=== PATIENT | female | born 1990 | race Caucasian/White ===

== ENCOUNTER 2020-06-02 05:34 | Inpatient (IN) ==
--- NOTE | 2020-05-17 13:31 | PAT Medication Instructions ---
Medication Instructions Date of Service May 17, 2020 Home Medications calcium carbonate [Tums] 300 mg PO TID PRN no.144-folic acid [] 400 mcg PO PM DO NOT take the morning of surgery calcium carbonate [Tums] 300 mg PO TID PRN Take evening before surgery calcium carbonate [Tums] 300 mg PO TID PRN (if needed) no.144-folic acid [] 400 mcg PO PM OTHERWISE NOTHING TO EAT OR DRINK AFTER MIDNIGHT Other Notes If you have any questions please call us at [phone] or [phone] or [phone] or [phone]
--- NOTE | 2020-05-19 12:21 | Anesthesiology Consultation ---
Date of Service May 19, 2020 Assessment & Plan (1) Encounter for pre-operative examination: Chart Review Chart Review: Acceptable Risk for Surgery and Patient seen in Pre Admission Testing Per PAT appt 05/19/20, pt denies any recent travel. Educated patient to follow up with surgeon's office regarding Covid testing. Educated on importance of self quarantining, social distancing and wearing mask in public both for the patient and household contacts. Teaching & Discussion Pre-Anesthesia Teaching/Discussion Notes: Instructed NPO after midnight before surgery,except medications with 15 cc of water. Medication instructions provided according to the PAT guidelines. History Surgery Operation Date: 06/02/20 08:50 Proposed Procedures p Section in LD - Villa Carmona MD Height/Weight Height: 5 ft 3 in Weight: 65.4 kg Allergies Allergy/AdvReac Type Severity Reaction Status Date / Time tuberculin, purified protein Allergy Intermediate Rash Verified 05/16/20 09:48 deriva Medications Home Medications Medication Instructions Recorded Confirmed Last Taken calcium carbonate [Tums] 300 mg PO TID PRN 05/16/20 05/16/20 Unknown no.144-folic acid 400 mcg PO PM 05/16/20 05/16/20 Unknown [] Past Medical History Medical History Heartburn during Rhinitis related- chronic and stable Exercise / Class Metabolic Activity II 4-5 Yardwork/Stairs/Walk up hill (one flight of stairs- no chest pain- mild SOB; rides bike 3 days week ) Past Family History Family History Grandmother (Paternal) Diabetes Past Surgical History Surgical History History of adenoidectomy History of myringotomy History of surgery on right wrist for cyst History of tonsillectomy History of tooth extraction wisdom teeth Past Anesthesia History No Hx of Anesthesia Complications (with exception to tonsillectomy- groggy- no reintubatin or ICU stay ) and No Family Hx of Anesthesia Complications History of PONV No Hx of PONV and Hx of Motion Sickness (recently secondary to ) Social History Smoking Status: Never smoker Do You Dip or Chew Tobacco: No Hx Alcohol Use: No Hx Substance Use: No substance use type: does not use Review of Systems Patient denies chest pain, shortness of breath at rest , cough, wheezing, palpitations. No hx of seizures, stroke, [place]. No hx of blood clots or blood transfusions Physical Exam Vital Signs VITALS BP 110/70 P 80 TEMP 98.3 SP02 99% RESP 16 Constitutional no acute distress ENMT Mouth: no TMJ clicking Thyromental Distance: > or= 3.5 Finger Breadths (3.5) Mallampati Class: II Neck neck extension not limited Respiratory normal respiratory effort; no respiratory distress Auscultation: lungs clear to auscultation bilaterally; no wheezes Cardiovascular Rate/Rhythm: regular rate and regular rhythm Heart Sounds: no murmur Musculoskeletal Spine: no pain with cervical ROM Neurologic moves all extremities Psychiatric Orientation: alert Testing Laboratory Results 05/19/20 12:40 05/19/20 12:40 PT 10.3 Seconds (9.0-12.0) 05/19/20 12:40 INR 1.0 (0.9-1.1) 05/19/20 12:40 APTT 24.8 Seconds (21.0-31.0) 05/19/20 12:40 Blood Type B Positive 05/19/20 12:40 Antibody Screen NEGATIVE 05/19/20 12:40
[2020-05-19 13:31] LABS: Basophils # (auto) 0.02 K/uL (0-0.2); Basophils % (auto) 0.2 %; Eosinophils # (auto) 0.07 K/uL (0-0.5); Eosinophils % (auto) 0.8 %; Hematocrit (blood only) 35.7 % (37-47); Hemoglobin 11.9 g/dL (12.0-16.0); Immature Granulocytes # (auto) 0.15 K/uL (0.00-0.02); Immature Granulocytes % (auto) 1.8 %; Lymphocytes # (auto) 1.78 K/uL (1.2-3.4); Lymphocytes % (auto) 21.3 %; Mean Corpuscular Hemoglobin 32.5 pg (25-34); Mean Corpuscular Hgb Conc 33.3 g/dL (32-36); Mean Corpuscular Volume 97.5 fL (80-100); Mean Platelet Volume 10.8 fL (7.4-10.4); Monocytes # (auto) 0.59 K/uL (0.11-0.59); Monocytes % (auto) 7.1 %; Neutrophils # (auto) 5.75 K/uL (1.4-6.5); Neutrophils % (auto) 68.8 %; Platelet Count 179 K/uL (130-400); RDW Standard Deviation 49.9 fL (36.4-46.3); Red Blood Count 3.66 M/uL (4.2-5.4); White Blood Count 8.36 K/uL (4.8-10.8)
[2020-05-19 13:50] LABS: Partial Thromboplastin Ratio 0.9; Partial Thromboplastin Time 24.8 Seconds (21.0-31.0); Prothrombin Time 10.3 Seconds (9.0-12.0)
[2020-05-19 14:19] LABS: BUN Creatinine Ratio 13.5 (10-20); Calcium 8.2 mg/dl (8.5-10.1); Est GFR (African American) 143.2; Est GFR (Non-African American) 123.5; Potassium 3.8 mmol/L (3.5-5.1)
--- NOTE | 2020-05-27 11:47 | History and Physical Report ---
DATE OF ADMISSION: 06/02/2020 CHIEF COMPLAINT: Total placenta previa, intrauterine , 37 weeks gestation. HISTORY OF PRESENT ILLNESS: The patient is a 2, para 0. She has had 1 spontaneous AB. She was diagnosed with suspected placenta previa at 19 weeks at her first ultrasound for anatomy. She was then seen at [facility] at 24 weeks where the diagnosis was confirmed with a transvaginal probe. Since that time, she has had no bleeding. She has had no pelvic exams or intercourse. She received 2 sets of steroids, one at about 26 weeks gestation and one on 05/12/2020. Her anatomical gestational age with ultrasound and her LMP ultrasound dates match up exactly. She is presently being scheduled for primary low segment section at 37 weeks due to total placenta previa. PAST MEDICAL HISTORY: ALLERGIES: SHE IS ALLERGIC TO TB TEST. SURGERIES: She has had T and A. She had tubes in her ears. She had a ganglion cyst removed from her right wrist. MEDICAL HISTORY: No history of rheumatic fever, heart disease, heart murmur, diabetes, tuberculosis. SOCIAL HISTORY: No smoking, no alcohol intake. Works at home. FAMILY HISTORY: Mom at age 36 in an accident. Father is 63 in good health. Two brothers and 1 sister in good health. REVIEW OF SYSTEMS: HEAD: No symptoms of frequent or severe headaches. EYES: No symptoms of blurred vision, double vision. EARS: No symptoms of frequent ear infection, difficulty hearing. NOSE: No symptoms of frequent nosebleeds, difficulty breathing through her nose. THROAT: No symptoms of frequent or severe sore throat, difficulty swallowing. RESPIRATORY SYSTEM: No history of asthma, chest pain, shortness of breath. PHYSICAL EXAMINATION: GENERAL: Well-developed, well-nourished white female, alert, oriented x3 and cooperative, no acute distress, appeared her stated age. EYES: Conjunctivae are pink. Sclerae white. No evidence of jaundice. EARS: Had normal light reflex bilaterally. NOSE: Had normal mucosa. Septum is midline. There were no polyps. THROAT: No erythema or evidence of infection. MOUTH: Teeth are in good state of repair. HEAD: Normocephalic, normal distribution of hair. HEART: Had regular rhythm. S1, S2 are normal. LUNGS: Clear to auscultation and percussion. ABDOMEN: Term size gravid uterus. Estimated weight 7 pounds. BACK: No CVA tenderness. MUSCULOSKELETAL: No calf tenderness. PELVIC: Deferred due to total placenta previa. IMPRESSIONS OF THIS CASE: Status post T and A, status post bilateral tubes in her ears, history of a ganglion cyst removal of her right wrist, intrauterine , 37 weeks gestation, total placenta previa.
[~2020-06-02 05:34] MED LIST: SODIUM CHLORIDE 0.9% 250 ML IV PRN
[2020-06-02] MEDS ORDERED: CITRIC ACID/SODIUM CITRATE 15 ML UDC PO SCH (06:00)
[2020-06-02] MEDS ORDERED: LACTATED RINGER'S 1,000 ML IV SCH ×2 (06:00→09:00)
[2020-06-02] MEDS ORDERED: cefOXitin 2,000 MG in DEXTROSE 5% 50 ML IV SCH (06:00)
[2020-06-02 06:29] LABS: Basophils # (auto) 0.02 K/uL (0-0.2); Basophils % (auto) 0.3 %; Eosinophils # (auto) 0.05 K/uL (0-0.5); Eosinophils % (auto) 0.6 %; Hematocrit (blood only) 34.2 % (37-47); Hemoglobin 11.3 g/dL (12.0-16.0); Immature Granulocytes # (auto) 0.07 K/uL (0.00-0.02); Immature Granulocytes % (auto) 0.9 %; Lymphocytes % (auto) 20.2 %; Mean Corpuscular Hemoglobin 32.6 pg (25-34); Mean Corpuscular Volume 98.6 fL (80-100); Monocytes # (auto) 0.65 K/uL (0.11-0.59); Monocytes % (auto) 8.2 %; Neutrophils # (auto) 5.55 K/uL (1.4-6.5); Neutrophils % (auto) 69.8 %; Platelet Count 141 K/uL (130-400); RDW Coefficient of Variation 14.2 % (11.5-14.5); RDW Standard Deviation 50.3 fL (36.4-46.3); Red Blood Count 3.47 M/uL (4.2-5.4); White Blood Count 7.94 K/uL (4.8-10.8)
[2020-06-02 06:41] LABS: Partial Thromboplastin Ratio 0.9; Partial Thromboplastin Time 25.1 Seconds (21.0-31.0)
[2020-06-02 06:46] LABS: BUN Creatinine Ratio 17.2 (10-20); Calcium 9.2 mg/dl (8.5-10.1); Creatinine Clr Calc Pharmacy 129.7 ml/min; Est GFR (African American) 142.4; Est GFR (Non-African American) 122.8; Potassium 3.6 mmol/L (3.5-5.1)
[2020-06-02] MEDS ORDERED: MoRPHine SULFATE PF 1 MG/ML 10 ML AMP/VIAL ONE (06:47)
[2020-06-02] MEDS ORDERED: BUPIVACAINE 0.5 % 5 MG/1 ML PF 10ML VIAL ONE (06:56)
[2020-06-02] MEDS ORDERED: OXYTOCIN 10 UNITS/ML VIAL ONE ×4 (06:58→08:14)
[2020-06-02] MEDS ORDERED: fentaNYL citrate 100 MCG/2 ML VIAL ONE (07:01)
[2020-06-02] MEDS ORDERED: ALBUMIN HUMAN 5% 12.5 GM/250 ML VIAL IV ONE (07:04)
--- NOTE | 2020-06-02 07:04 | History & Physical Bridge Note ---
Date of Service June 02, 2020 History & Physical Bridge Note I have examined the patient, reviewed the History & Physical and in the interval since the performance of the History & Physical I have noted the following changes of clinical significance: no changes noted
[2020-06-02] MEDS ORDERED: SODIUM CHLORIDE 0.9% 250 ML IV PRN (07:34)
[2020-06-02] MEDS ORDERED: NALOXONE HCL 0.4 MG/1 ML VIAL/CARP IV PRN (08:01)
[2020-06-02] MEDS ORDERED: DiphenhydrAMINE HCL 50 MG/ML VIAL IV PRN (08:01)
[2020-06-02] MEDS ORDERED: ONDANSETRON INJ 2 MG/ML 2 ML VIAL IV PRN (08:01)
[2020-06-02] MEDS ORDERED: NALOXONE HCL 1 MG in SODIUM CHLORIDE 0.9% 1000ML 1,000 ML IV PRN (08:01)
[2020-06-02] MEDS ORDERED: MoRPHine SULFATE 2 MG/ML CARP IV PRN (08:01)
[2020-06-02] MEDS ORDERED: LACTATED RINGER'S 500 ML IV PRN (08:01)
[2020-06-02] MEDS ORDERED: ePHEDrine sulfate 50 MG/ML AMP IV PRN (08:01)
[2020-06-02] MEDS ORDERED: NALOXONE HCL 0.08 MG in SYRINGE 1.8 ML IV PRN (08:01)
[2020-06-02] MEDS ORDERED: MoRPHine SULFATE PF 1 MG/ML 10 ML AMP/VIAL INT SPINAL ONE (08:01)
[2020-06-02] MEDS ORDERED: ONDANSETRON INJ 2 MG/ML 2 ML VIAL ONE (08:11)
[2020-06-02] MEDS ORDERED: PHENYLEPHRINE HCL 10 MG/ML VIAL ONE (08:11)
[2020-06-02] MEDS ORDERED: DC INTRASPINAL MORPHINE SCH (08:15)
[2020-06-02] MEDS ORDERED: SODIUM CHLORIDE 0.9% 1000ML 1,000 ML IV SCH (08:15)
[2020-06-02] MEDS ORDERED: NO NARCOTICS OR SEDATIVES SCH (08:15)
[2020-06-02] MEDS ORDERED: OXYTOCIN 10 UNITS/ML VIAL IM ONE (08:21)
[2020-06-02] MEDS ORDERED: SENNA 8.6 MG TAB PO PRN (08:53)
[2020-06-02] MEDS ORDERED: BENZOCAINE 20% AER SPR 82.5 GM CAN EXT PRN (08:53)
[2020-06-02] MEDS ORDERED: DIPHTHERIA/TETANUS/PERTUSSIS 0.5 ML SYR/VIAL IM ONE (08:53)
[2020-06-02] MEDS ORDERED: SUPERCREAM 0.870% 15 GM JAR EXT PRN (08:53)
[2020-06-02] MEDS ORDERED: HYDROCORTISONE ACETATE 25 MG SUPP PR PRN (08:53)
[2020-06-02] MEDS ORDERED: MAGNESIUM HYDROXIDE SUSP 30 ML UDC PO PRN (08:53)
--- NOTE | 2020-06-02 08:53 | Post Operative Brief Note ---
Immediate Post Op Note v1 Date of Surgery June 02, 2020 Pre & Post Diagnosis Operation Date: 06/02/20 07:15 Pre-Op Diagnosis: 37 Weeks, Complete Placenta Previa Post-Op Diagnosis: 37 Weeks, Complete Placenta Previa I identified the patient and participated in the time-out.: Yes Procedure Operation Date: 06/02/20 07:15 Actual Procedures p Section in Operating Room - Villa Carmona MD Surgeon Villa Carmona MD Powdered Sugar Supervisor Dr Mota Estimated Blood Loss 800 Findings Consistent with Post-Op Diagnosis placenta previa confirmed Specimens placenta Drains Sinclair Catheter (16fr sinclair catheter placed without difficulty, sinclair demonstrates clear yellow urine. Output measured and recorded by anesthesia.) Anesthesia Type MAC Spinal Regional Complications none Disposition Accompanied Patient To Recovery: No Disposition: Recovery Room
[2020-06-02] MEDS: KETOROLAC 30 MG/ML VIAL IV PRN ×3 (09:41→23:33)
--- NOTE | 2020-06-02 10:02 | Operative Report (OR) ---
DATE OF OPERATION: 06/02/2020 PROCEDURE: Primary low segment section. INDICATIONS FOR SURGERY: Total placenta previa, intrauterine , 37 weeks gestation. PREOPERATIVE DIAGNOSES: Total placenta previa, intrauterine , 37 weeks. POSTOPERATIVE DIAGNOSES: Total placenta previa, intrauterine , 37 weeks. Previa confirmed, delivered live male . SURGEON: Nate Carmona MD. [employer] TECHNICAL MANAGER: Dr. Mota. ESTIMATED BLOOD LOSS: 800 mL. ANESTHESIA: Spinal. OPERATIVE FINDINGS AND PROCEDURE: The patient was brought to the OR table, correctly identified by armband and conversation. Spinal anesthesia was administered. Martínez catheter was inserted aseptically in the bladder. Compression stockings were applied. Lower abdomen was painted with an alcohol based sterilizing solution, draped in the usual sterile fashion. The adequacy of the spinal was tested and found to be good. A Pfannenstiel incision was made, carried down to the anterior fascia by sharp dissection. Hemostasis was secured by electrocauterization. Fascia was incised transversely from the underlying muscle by blunt and sharp dissection. Recti muscles were in the midline, exposing peritoneum, which was carefully raised and entered. A retractor was then placed into the incision and opened up to its maximum capacity. We palpated the head. The head was not low. We made an incision above the vesicouterine fold about the middle of where the head was palpated to be. Then I scored the lower uterine segment with a knife and then entered with the scissors. Immediately some of the placenta came through. I basically got in the plane around the placenta, was able to get under the head, applied a vectis retractor. With fundal pressure, the infant was delivered. Cord was clamped and cut. The was attended to by the motor builder winder who was scrubbed and present at the time of delivery. Cord blood was taken. Now, the placenta was removed in total. Uterus, tubes, and ovaries were brought out through the incision. Uterine cavity was cleansed with a clean sponge. Ten units of Pitocin were injected into the myometrium. Myometrium was approximated in 2 layers, approximated the muscular layer with a running heavy chromic and then I approximated the fascial layer over this with a heavy Vicryl with wide bites in good approximation of the fascial layer. Following this, I did one interrupted [id number] on the patient's left side because of some bleeding. This controlled the bleeding. I then used a 3-0 chromic to reapproximate the peritoneal edges restoring the integrity of the vesicouterine fold. We then cleansed the pelvis of all blood clots and debris. We put the uterus, tubes, and ovaries back into the abdominal cavity, removed the retractor and I did a careful anatomical approximation of the anterior abdominal wall. Peritoneum was closed with a mattress suture of chromic catgut. Recti muscles were approximated with interrupted [id number] suture of chromic catgut. The fascia was closed with continuous interlocking suture of Vicryl on each side, tied in the middle. SubQ was approximated with a running plain. Skin edges were approximated with staple clips. The patient tolerated the procedure well and left the OR in good condition. Estimated blood loss was 800 mL. I attest to the content of the Intraoperative Record and any orders documented therein. Any exception s are noted below.
[2020-06-02] MEDS: OXYTOCIN 20 UNITS in LACTATED RINGER'S 1,000 ML IV SCH ×2 (11:18→19:12)
[2020-06-02] MEDS: SIMETHICONE 80 MG CHEW PO SCH ×3 (13:00→21:00)
--- NOTE | 2020-06-02 13:15 | Anesthesiology Progress Note ---
Date of Service June 02, 2020 Anesthesia Post Procedure Vital Signs Vital Signs: Temp Pulse Pulse Resp BP BP Pulse Ox 06/02/20 11:28 49 L 102/64 100 06/02/20 11:23 60 100 06/02/20 11:18 60 102/62 100 06/02/20 11:13 60 100 06/02/20 11:08 36.4 C L 69 71 20 121/73 121/73 100 06/02/20 11:03 67 98 06/02/20 10:58 62 104/71 100 06/02/20 10:53 66 100 06/02/20 10:48 69 100/69 100 06/02/20 10:43 60 100 06/02/20 10:38 78 80 20 98/69 L 98/69 L 100 06/02/20 10:33 63 100 06/02/20 10:28 65 96/69 L 99 06/02/20 10:23 80 99 06/02/20 10:18 62 96/64 L 100 06/02/20 10:13 62 100 06/02/20 10:10 36.4 C L 61 20 96/60 L 100 06/02/20 10:08 36.4 C L 61 61 20 96/60 L 96/60 L 100 06/02/20 10:03 59 L 99 06/02/20 09:58 61 61 16 98/62 L 98/62 L 100 06/02/20 09:53 61 100 06/02/20 09:48 60 61 20 99/64 L 99/64 L 100 06/02/20 09:43 61 99 06/02/20 09:38 63 60 16 99/60 L 99/60 L 100 06/02/20 09:33 62 99 06/02/20 09:28 60 59 L 16 95/55 L 95/55 L 100 06/02/20 09:23 61 100 06/02/20 09:18 62 98/59 L 100 06/02/20 09:17 67 20 98/59 L 100 06/02/20 09:15 69 92 06/02/20 09:13 72 98 06/02/20 09:08 36.4 C L 61 61 20 91/53 L 91/53 L 93 06/02/20 09:07 61 92 06/02/20 09:03 62 100 06/02/20 08:58 59 L 109/59 L 100 06/02/20 07:18 36.7 C 20 06/02/20 07:07 71 116/67 06/02/20 06:03 36.8 C 06/02/20 05:44 36.8 C 76 18 112/75 Pain Intensity Abdomen: Pain Intensity: 0 Transfer of Care Handoff Completed per policy Notes Mental Status: alert / awake / arousable and participated in evaluation Patient Amnestic to Procedure: Yes Nausea / Vomiting: adequately controlled Pain: adequately controlled Airway Patency, RR, SpO2: stable & adequate BP & HR: stable & adequate Hydration State: stable & adequate Neuraxial Anesthesia: was administered and sensory block is resolving Anesthetic Complications: no major complications apparent and Pt Satisfied with anesthetic care
[2020-06-02] MEDS: DOCUSATE SODIUM 100 MG CAP PO SCH (21:00)
[2020-06-03] MEDS ORDERED: MEPERIDINE HCL 50 MG/ML CARP IV PRN (02:03)
[2020-06-03] MEDS ORDERED: KETOROLAC 30 MG/ML VIAL IV PRN (02:03)
[2020-06-03] MEDS ORDERED: PROMETHAZINE HCL 25 MG in SODIUM CHLORIDE 0.9% 50 ML IV PRN (02:03)
[2020-06-03] MEDS ORDERED: DiphenhydrAMINE HCL 50 MG/ML VIAL IV PRN (02:03)
[2020-06-03] MEDS ORDERED: ONDANSETRON INJ 2 MG/ML 2 ML VIAL IV PRN (02:03)
[2020-06-03] MEDS ORDERED: ZOLPIDEM TARTRATE 5 MG TAB PO PRN (02:03)
[2020-06-03] MEDS: OXYCODONE/ACETAMINOPHEN 5mg/325mg TAB PO PRN ×6 (03:20→23:56)
[2020-06-03 06:44] LABS: Basophils # (auto) 0.02 K/uL (0-0.2); Basophils % (auto) 0.2 %; Eosinophils # (auto) 0.03 K/uL (0-0.5); Eosinophils % (auto) 0.3 %; Hematocrit (blood only) 28.7 % (37-47); Hemoglobin 9.6 g/dL (12.0-16.0); Immature Granulocytes # (auto) 0.07 K/uL (0.00-0.02); Immature Granulocytes % (auto) 0.6 %; Lymphocytes # (auto) 1.91 K/uL (1.2-3.4); Lymphocytes % (auto) 16.9 %; Mean Corpuscular Hemoglobin 33.1 pg (25-34); Mean Corpuscular Hgb Conc 33.4 g/dL (32-36); Mean Platelet Volume 11.1 fL (7.4-10.4); Monocytes # (auto) 0.69 K/uL (0.11-0.59); Monocytes % (auto) 6.1 %; Neutrophils # (auto) 8.59 K/uL (1.4-6.5); Neutrophils % (auto) 75.9 %; Platelet Count 140 K/uL (130-400); RDW Coefficient of Variation 14.3 % (11.5-14.5); White Blood Count 11.31 K/uL (4.8-10.8)
[2020-06-03] MEDS: PRENATAL VITAMIN 1 TAB PO SCH (07:28)
[2020-06-03] MEDS: FERROUS SULFATE 325 MG TAB PO SCH (07:28)
[2020-06-03] MEDS: DOCUSATE SODIUM 100 MG CAP PO SCH ×2 (07:28→20:37)
[2020-06-03] MEDS: SIMETHICONE 80 MG CHEW PO SCH ×4 (07:29→20:37)
[2020-06-03] MEDS: IBUPROFEN 600 MG TAB PO PRN ×5 (07:29→23:55)
--- NOTE | 2020-06-03 08:21 | Obstetrical Progress Note ---
Date of Service June 03, 2020 Assessment & Plan Admission and Anticipated Discharge Date Admission Date: June 02, 2020 Physical Exam Physical Exam: abdomen soft and non tender incision is clean and dry passing flatus no calf tenderness ambulating well vaginal bleeding scant hgb 9.6 Results & Data ([facility]) Vital Signs (Past 12 Hours) Vital Signs Temp Pulse Resp BP Pulse Ox 06/03/20 04:00 36.9 C 70 18 107/60 99 06/03/20 02:00 18 99 06/03/20 01:00 18 99 06/02/20 23:30 37.1 C 68 18 105/66 100 06/02/20 22:35 20 98 06/02/20 21:35 20 98 06/02/20 20:35 20 98
[2020-06-03] MEDS ORDERED: bisacodyL 5 MG TABEC PO SCH (20:00)
[2020-06-04] MEDS: OXYCODONE/ACETAMINOPHEN 5mg/325mg TAB PO PRN ×3 (04:03→12:39)
[2020-06-04] MEDS: IBUPROFEN 600 MG TAB PO PRN ×5 (04:03→21:37)
[2020-06-04 06:02] LABS: Hematocrit (blood only) 28.2 % (37-47); Hemoglobin 9.4 g/dL (12.0-16.0)
[2020-06-04] MEDS: SIMETHICONE 80 MG CHEW PO SCH ×4 (08:29→20:58)
[2020-06-04] MEDS: DOCUSATE SODIUM 100 MG CAP PO SCH ×2 (08:29→20:58)
[2020-06-04] MEDS: PRENATAL VITAMIN 1 TAB PO SCH (08:29)
[2020-06-04] MEDS: FERROUS SULFATE 325 MG TAB PO SCH (08:31)
[2020-06-04] MEDS ORDERED: bisacodyL 10 MG SUPP PR PRN (08:53)
[2020-06-04] MEDS ORDERED: ONDANSETRON 4 MG OD TAB PO PRN (09:15)
--- NOTE | 2020-06-04 12:38 | Obstetrical Progress Note ---
Date of Service June 04, 2020 Assessment & Plan Admission and Anticipated Discharge Date Admission Date: June 02, 2020 Physical Exam Physical Exam: abdomen soft and non tender incision is clean and dry passing flatus no calf tenderness vaginal bleeding scant hgb 9.4 Results & Data ([facility]) Vital Signs (Past 12 Hours) Vital Signs Temp Pulse Resp BP Pulse Ox 06/04/20 12:05 37.0 C 75 18 112/79 98 06/04/20 07:30 37.1 C 67 18 107/62
[2020-06-05] MEDS: IBUPROFEN 600 MG TAB PO PRN ×2 (03:28→07:29)
[2020-06-05] MEDS: FERROUS SULFATE 325 MG TAB PO SCH (07:28)
[2020-06-05] MEDS: DOCUSATE SODIUM 100 MG CAP PO SCH (07:28)
[2020-06-05] MEDS: SIMETHICONE 80 MG CHEW PO SCH (07:28)
[2020-06-05] MEDS: PRENATAL VITAMIN 1 TAB PO SCH (07:28)
--- NOTE | 2020-06-05 11:16 | Obstetrical Progress Note ---
Date of Service June 05, 2020 Assessment & Plan Admission and Anticipated Discharge Date Admission Date: June 02, 2020 Physical Exam Physical Exam: abdomen soft and non tender incision is clean and dry no calf tenderness ambulating well vagina bleeding scant hgb 9.4 Results & Data ([facility]) Vital Signs (Past 12 Hours) Vital Signs Temp Pulse Resp BP 06/05/20 08:14 37.1 C 80 16 111/73 06/05/20 00:10 36.9 C 63 18 108/72
--- NOTE | 2020-06-05 21:30 | Discharge Summary (DS) ---
She is a 2, para 1. Blood type is B positive. She was diagnosed earlier in her with a complete placenta previa. This was confirmed with a transvaginal ultrasound. She took the usual previa precautions during her course. The fetus was checked for fluid and growth several times and she received 2 sets of steroids, one at about 26 weeks gestation and one at about 34 weeks gestation. She was brought in exactly at 37 weeks and underwent primary low segment section. At the time of surgery, she had a little bit more than usual blood loss at about 800 mL. Previa was confirmed. At the time of surgery, her preoperative hemoglobin was 11.3. Postoperatively, it fell to 9.4. Postoperatively, she did well. Postoperative bleeding was good. She remained afebrile. She ambulated within 24 hours. At the time of discharge, she was ambulating well, eating well, taking a regular diet. Pain was well controlled with a combination of Percocet and Motrin and she was ready to be discharged. She was told to call the office if she had a temp over 100 or any heavy bleeding and to get the clips removed in about 1 week.
== END 2020-06-05 13:00 | disposition home or self-care (01) | DRG 788 ==
LOC: 4S1 05:34 → EDSTATUS 08:50 → 4S2 13:23

== ENCOUNTER 2023-08-20 15:55 | Observation (INO) ==
--- NOTE | 2023-08-20 16:38 | History & Physical Report ---
Date of Service August 20, 2023 Assessment & Plan (1) premature rupture of membranes (PPROM) with unknown onset of labor: Plan: 16 weeks patient had an abnormal panorama test and was sent to [place] to get confirmation rupture of membranes several hours afterwards. Clinical exam today sterile speculum was used there is pooling in the vagina well ferning and nitrazine are negative the AmniSure is definitively positive Ultrasound is performed baby is active heart rate tones positive there seems to be adequate fluid with the deepest vertical pocket of 6 cm I spoke with Dr. Jayden ALVES at [place] who was at her amnio today discussed the plan we discussed that generally the recommendation is observation at this stage we debated the benefit of antibiotics we discussed that there is limited data but it would be reasonable to consider ampicillin and azithromycin as the typical protocol for P PROM We discussed that outcomes generally are better with iatrogenic P PROM related to amniocentesis however there is a chance she will continue to leak. Discussed all of this with the patient and she would like to try antibiotics even with limited data we discussed risks of antibiotics we will keep her at least overnight and discuss further in the morning generally antibiotic protocols for viable fetuses are 48 hours of IV and then a switch to oral antibiotics but this will be discussed as the patient progresses and discussed with the on-call provider tomorrow Long review with the patient and her partner plan observation with antibiotics as mentioned and close clinical monitoring History of Present Illness Primary Care Provider: Keerthi Potter PA-C Patient presented to our labor and delivery after having an amniocentesis at [facility] earlier today and it was done at 10:45 in the morning patient states there were several passes of the needle to obtain fluid. On her drive home at approximately 3:30 PM she noticed a gush of fluid and continued leaking she is having some cramping but nothing significant she notices no blood Allergies Allergy/AdvReac Type Severity Reaction Status Date / Time tuberculin, purified protein Allergy Intermediate Rash Verified 07/29/23 09:29 deriva Home Medications Medication Instructions Recorded Confirmed Type omega-3 fatty acids [Fish Oil] PO 04/29/23 07/29/23 History no.167-folic acid-dha PO 04/29/23 07/29/23 History [One-A-Day ] levothyroxine 25 mcg tablet 25 mcg PO DAILY 06/25/23 07/29/23 History (Synthroid) Patient History Medical History (Updated 08/20/23 @ 16:35 by Ana Vance MD, FACOG) Miscarriage Rhinitis related- chronic and stable Heartburn during Surgical History (Updated 11/05/22 @ 08:36 by JANKI Carranza) H/O section History of surgery on right wrist for cyst History of tooth extraction wisdom teeth History of myringotomy History of adenoidectomy History of tonsillectomy Family History (Updated 11/12/22 @ 13:32 by JANKI Carranza) Grandmother (Paternal) Diabetes Grandfather (Paternal) Colorectal cancer Denies family history of Ovarian cancer Breast cancer Social History (Updated 06/25/23 @ 10:52 by Kirstin Baldwin) Smoking Status: Never smoker Second Hand Exposure: No; Do You Dip or Chew Tobacco: No; Hx Alcohol Use: No Hx Substance Use: No Preferred Language: Chadian Communication Ability: Effective Concrete Swimming Pool Installer Required: No Beliefs That Will Affect Care: None marital status: marital status details: Clay (34) [phone] Current Living Situation: Spouse Current Living Situation Comment: lives spouse, son, 1 dog current occupational status: employed current occupation: RN participant administrator Feels Safe at Home: Yes Assistive Devices: Glasses Physical Exam Constitutional: WD/WN, vitals as above well developed and well nourished Respiratory: normal respiratory effort, lungs clear to auscultation normal respiratory effort Cardiovascular: RRR, no murmur, no edema Gastrointestinal (Abdomen): normal bowel sounds, soft, nontender, no hepatosplenomegaly Coding Level of Care Code 06941 INT INP/OBS CARE 2/55MIN Diagnoses premature rupture of membranes (PPROM) with unknown onset of labor O42.919
[2023-08-20] MEDS ORDERED: AMPICILLIN SOD 1 GM VIAL IV SCH (16:45)
[2023-08-20] MEDS ORDERED: Patient's HEIGHT &/or WEIGHT Needed SCH (16:45)
[2023-08-20] MEDS ORDERED: AZITHROMYCIN 1,000 MG in DEXTROSE 5% 500 ML IV STA (16:46)
[2023-08-20] MEDS ORDERED: AMPICILLIN 2,000 MG in SODIUM CHLOR 0.9% MINI-B 100 ML IV SCH (17:00)
[2023-08-20] MEDS: LACTATED RINGER'S 1,000 ML IV PRN (17:03)
[2023-08-20] MEDS: AMPICILLIN 2,000 MG in SODIUM CHLOR 0.9% MINI-B 100 ML IV SCH ×2 (17:07→22:40)
[2023-08-20 17:19] LABS: Basophils # (auto) 0.03 K/uL (0.00-0.20); Basophils % (auto) 0.3 %; Eosinophils # (auto) 0.03 K/uL (0.00-0.50); Eosinophils % (auto) 0.3 %; Hematocrit (blood only) 37.2 % (37.0-47.0); Hemoglobin 13.2 g/dl (12.0-16.0); Immature Granulocytes # (auto) 0.03 K/uL (0.01-0.20); Immature Granulocytes % (auto) 0.3 %; Lymphocytes # (auto) 1.48 K/uL (1.20-3.40); Mean Corpuscular Hemoglobin 31.5 pg (25.0-34.0); Mean Corpuscular Hgb Conc 35.5 g/dL (32.0-36.0); Mean Corpuscular Volume 88.8 fL (80.0-100.0); Mean Platelet Volume 10.9 fL (9.4-12.4); Monocytes # (auto) 0.53 K/uL (0.11-0.59); Monocytes % (auto) 5.4 %; Neutrophils # (auto) 7.79 K/uL (1.40-6.50); Neutrophils % (auto) 78.7 %; Platelet Count 212 K/uL (130-400); RDW Coefficient of Variation 13.2 % (11.5-14.5); RDW Standard Deviation 43.1 fL (36.4-46.3); Red Blood Count 4.19 M/uL (4.20-5.40); White Blood Count 9.89 K/ul (4.8-10.8)
[2023-08-21] MEDS: AMPICILLIN 2,000 MG in SODIUM CHLOR 0.9% MINI-B 100 ML IV SCH ×4 (04:56→23:11)
[2023-08-21] MEDS: LACTATED RINGER'S 1,000 ML IV PRN ×3 (04:57→20:57)
--- NOTE | 2023-08-21 07:40 | Obstetrical Progress Note ---
Date of Service August 21, 2023 Assessment & Plan (1) premature rupture of membranes (PPROM) with unknown onset of labor: Plan: Performed bedside ultrasound today there is adequate fluid around the baby baby is active heart rate action is present patient does note she is still leaking although a lot less and she also feels significantly less crampy. We reviewed our plan today she is currently on IV antibiotics we have discussed this is an option yesterday and both the patient and I had agreed this was reasonable course of action typically we run IV antibiotics for 48 hours patient understands this will be 1 more night in hospital. We will continue the IV ampicillin for 48 hours would consider conversion to oral therapy and possible discharge home after that. The patient is noted signs of infection no elevation in temperature With regards to her current situation she says she did get to talk to her son by phone last night she is feeling somewhat better about the situation And ultimately this is a worrisome situation however P PROM with amniocentesis has a higher chance of sealing over and this is what we are hoping for we will monitor closely Admission and Anticipated Discharge Date Admission Date: August 20, 2023 Results & Data Vital Signs (Past 12 Hours) Vital Signs Temp Pulse Resp BP 08/21/23 05:00 98.6 F 18 08/21/23 02:45 97.7 F 16 08/21/23 02:45 67 106/51 L 08/20/23 22:44 98.4 F 18 08/20/23 22:44 68 95/51 L 08/20/23 21:00 98.4 F 18 PG Care Time/CCT Total # of Minutes Spent Total Time Spent with Patient: Total time spent is greater than 50% in coordination of care (as documented) at patient's floor/unit and/or counseling patient: Coding Level of Care Code 68801 SUB INP/OBS CARE 2/35MIN Diagnoses premature rupture of membranes (PPROM) with unknown onset of labor O42.919
[2023-08-21 08:16] LABS: Hematocrit (blood only) 33.8 % (37.0-47.0); Hemoglobin 11.9 g/dl (12.0-16.0); Mean Corpuscular Hemoglobin 31.6 pg (25.0-34.0); Mean Corpuscular Hgb Conc 35.2 g/dL (32.0-36.0); Mean Corpuscular Volume 89.9 fL (80.0-100.0); Mean Platelet Volume 10.7 fL (9.4-12.4); Platelet Count 180 K/uL (130-400); RDW Coefficient of Variation 13.4 % (11.5-14.5); RDW Standard Deviation 43.8 fL (36.4-46.3); Red Blood Count 3.76 M/uL (4.20-5.40); White Blood Count 7.96 K/ul (4.8-10.8)
[2023-08-21] MEDS: ADVANCED PROBIOTIC 1250 MG CAPSULE PO SCH (10:09)
[2023-08-21] MEDS: DOCUSATE SODIUM 100 MG CAP PO SCH ×2 (10:09→20:57)
--- NOTE | 2023-08-21 11:46 | Communication Note ---
Date of Service: August 21, 2023 stopped in to see patient. offered support. notes leaking still there but slower. denies other concerns or questions. we did change her tsh labs to today per her request. also did discuss outpt followup plan. she has appt already planned for saturday at 9am. I will make sure she sees the ob 1 provider and plan u/s before then. She says currently listening to fhts q8hr and satisfied with that. Offered her option to look at baby and observe fluid at any point if she desires. She will let us know. Based on dosing of iv abx planned for 48hr, will likely get last dose later pm tomorrow. Then was to have oral course of abx.
[2023-08-21 12:17] LABS: Thyroid Stimulating Hormone 1.403 uIu/ml (0.300-4.500)
[2023-08-21 12:59] LABS: T4 Free Thyroxine 0.94 ng/dl (0.61-1.60)
[2023-08-22] MEDS: AMPICILLIN 2,000 MG in SODIUM CHLOR 0.9% MINI-B 100 ML IV SCH ×3 (05:06→17:00)
[2023-08-22] MEDS: LACTATED RINGER'S 1,000 ML IV PRN (05:06)
[2023-08-22] MEDS ORDERED: LEVOTHYROXINE SODIUM 25 MCG TABLET PO SCH (06:30)
--- NOTE | 2023-08-22 08:32 | Obstetrical Progress Note ---
Date of Service August 22, 2023 Assessment & Plan (1) premature rupture of membranes (PPROM) with unknown onset of labor: Plan pt aware of plan for outpt abx after last dose iv tonight. will send to [facility]. has appt planned with u/s on saturday. to call with any concerns until then, worsening leaking. bleeding. fever. pain. any other concerns. Admission and Anticipated Discharge Date Admission Date: August 20, 2023 Subjective pt doing ok this am. notes no leaking x 18hrs. wants to stay until her 5pm dose of abx. no concern for fever or abdominal pain. would like to see baby and if any collection of fluid this am. thyroid tests were wnl. Review of Systems Constitutional: as per Subjective / HPI Physical Exam Constitutional: WD/WN, vitals as above Respiratory: normal respiratory effort, lungs clear to auscultation Cardiovascular: Rate/Rhythm: regular rate and regular rhythm Gastrointestinal (Abdomen): soft no significant tenderness. no rebound/guarding. Musculoskeletal: nontender calves Neurologic: grossly normal Psychiatric: A+Ox3, euthymic affect Genitourinary: Bedside us 150s. small amount of fluid recollecting. Results & Data Vital Signs (Past 12 Hours) Vital Signs Temp Pulse Resp BP BP Pulse Ox O2 Del Method 08/22/23 07:32 98.1 F 61 17 100/57 L 99 Room Air 08/22/23 05:05 97.9 F 71 18 92/60 L 100 Room Air 08/21/23 23:15 97.5 F L 67 18 83/45 L 97 Room Air 08/21/23 20:53 98.4 F PG Care Time/CCT Total # of Minutes Spent Total Time Spent with Patient: Total time spent is greater than 50% in coordination of care (as documented) at patient's floor/unit and/or counseling patient: Coding Level of Care Code 42642 SUB INP/OBS CARE 2/35MIN Diagnoses premature rupture of membranes (PPROM) with unknown onset of labor O42.919
[2023-08-22] MEDS: ADVANCED PROBIOTIC 1250 MG CAPSULE PO SCH (10:45)
[2023-08-22] MEDS: DOCUSATE SODIUM 100 MG CAP PO SCH (10:48)
--- OUTSIDE RECORDS SUMMARY | 2023-08-22 22:32 | External Medical Summary | Continuity of Care Document ---
Author Name Unknown Organization [facility] [address] Address [address] [place] [id number] Encounter [facility] FINNBR [id number] Date(s): 08/06/23 - 08/06/23 [facility] [address] [place] [address] [phone] Encounter Diagnosis Encounter for procreative genetic counseling(Discharge Diagnosis) - 08/06/23 Abnormal chromosomal and genetic finding on screening mother(Discharge Diagnosis) - 08/06/23 Discharge Disposition: Home or Self Care Attending Physician: JAMILAH Montesinos Melissa L Referring Physician: ISIDRO Sanchez Morgan Lee Allergies, Adverse Reactions, Alerts No Known Allergies Immunizations Given and Recorded Vaccine Date Status Refusal Reason influenza virus vaccine, inactivated 08/07/22 Give n influenza virus vaccine, inactivated 06/29/20 Give n hepatitis B adult vaccine 05/23/16 Given tetanus/diphtheria/pertuss, acel (Tdap) 05/17/16 G iven Medications levothyroxine 25 mcg (0.025 mg) oral tablet Start: 06/21/23 9:06:00 EDT, 1 tab, PO, Daily, Disp# 30 tab, Refills: 11, Pharmacy: [id number] Start Date: 06/21/23 Stop Date: 06/15/24 Status: Ordered 1 Plus 1 oral tablet Start: 08/20/19 12:00:00 EST, 1 tab, PO, Daily Start Date: 08/20/19 Status: Ordered Problem List Condition Confirmation Course Effective Dates Status Health St atus Informant Acne Confirmed Active Diagnosis Diagnosis Type Effective Dates Health Status Clinical Service Informant Abnormal chromosomal and genetic finding on screening mother 1 Discharge Diagnosis 08/06/23 Non-Specified Encounter for procreative genetic counseling Discharge Diagnosis 08/06/23 14:20 EDT - AnthonyJAMILAH valenzuelaKrupa Lisa 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 The patient has consented to this service,and I have advised the patient that this is a billable visit for which they may be subject to a copay. [X] The patient has initiated this visit after he/she was informed of the availability of telehealth for this medically necessary visit. [ _ ] The provider initiated this visit after explaining the need for this visit to the patient, who has consented to this virtual visit. I am located at my: [ X ] Home [ _ ] Office [ _ ] Other: _ The patient is located at: [ X ] Home [ _ ] Other: _ This visit was conducted via live audio/video technology: [ X ] [facility] Converge [ _ ] Zoom Total time spent communicating with the patient: 37minutes. 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 Ancestry is [place] Citizen. Her 34 y.o. partner is Welsh/Norther . Consanguinity is denied. The couplehave a healthy 3 y.o. daughter, and they experienced an 11wk and 7wk miscarriage prior to this (no genetic studies). The reported extended family history is non-contributory. There is no reported history of congenital defects, neurodevelopmental disorders, or genetic/chromosomal syndromes. DISCUSSION: It was a pleasure meeting Reese and her , Clay, today via telehealth for genetic counseling. Reese is a 33 years-old, , female. She elected to undergo cell-free DNA aneuploidy earlier in the (Panorama at 11wks), which returned an increased risk for 22q11.2 deletion syndrome in a male fetus (1 in 2 risk). Today we reviewed the nature of cell-free DNA screening (cfDNA). Natalie laboratorystest, Panorade, reports a sensitivity of 83.3% and specificity of >99% for 22q11.2 deletion syndrome. Based on these numbers, as well as the prevalence of the condition, the positive predictive value is calculated to be 1 in 2 (50%). We went on to review other possible reasons for an abnormal cfDNA result, including: false positive due to lab error or misinterpretation of data; a maternal chromosome abnormality; or confined placental mosaicism. As cfDNA is not a diagnostic test, confirmatory testing is recommended, either prenatally or postnatally. We reviewed chromosome microarray to detect micro- deletion/duplication syndromes. Prenatally,amniocentesis to obtain cells in the amniotic fluid sample for testing is available after 15 weeks gestation. The risks, benefits and limitations of the procedure were described, as was the procedure-related risk of loss/earlier delivery of less than 1 in 300. If testing isnot desired, testing can be performed on umbilical cord-blood immediately after to prevent an extra needle-stick for baby. We then reviewed the etiology and natural history of 22q11.2 deletion syndrome. This condition is most often de shailesh (sporadic in occurrence) but may be inherited from a parent. The most common symptoms of 22q11.2 deletion syndrome include congenital heart defects, cleft palate, developmental delay, absent/hypoplastic thymus and immunodeficiency, hypocalcemia in infancy causing seizures, and dysmorphic facies. We also discussed the possibility of eye problems, hearing loss, and psychiatric disorders such as schizophrenia. There are numerous other symptoms that can go along with this condition. However, 22q11.2 deletion syndrome exhibits variable expressivity, with some patients being so mildly affected they are never formally diagnosed and others with more severe symptoms. After counseling, all of their questions were addressed and they expressed understanding. They elected to proceed with amniocentesis, which will be scheduled at [facility]. Parental samples will also be sent to determine inheritance if diagnosis is confirmed. RESOURCES: 1) International 22q11.2 Foundation at www.22q.org 2) 22q11.2 deletion syndrome - About the Disease - Genetic and Rare Diseases Information Center (nih.gov) Thank you for allowing me to participate in the care of this patient. Sincerely, Krupa Montesinos, [place], [facility] [place] Genetic Counselor Electronic Signature on File CC: ISIDRO [facility] [employer] [address] [address] * Electronically Reviewed/Signed by: VILMA Freitas, [facility] Author Signature Dt/Tm:08/06/2023 03:39 PM MLY Patient Care team information Care Team Personnel Name: Macrina Martins Position: HIS Supervisor_P Member Role: HIS Lifetime Name: MD Lewis David L Position: Physician - Derm Member Role: Lifetime Relationship Address: Address: [address] [place] [address], [place] [address] [place] Care Team Related Persons Name: KRISTEL VAZQUEZ Address: home [address] [facility] [place] [phone] Name: CLAY VAZQUEZ Address: home [address] [facility] [place] [id number]
--- OUTSIDE RECORDS SUMMARY | 2023-08-22 22:32 | External Medical Summary | Continuity of Care Document ---
Author Name Unknown Organization [place] [address] [place] [phone] Encounter [facility] FINNBR [id number] Date(s): 07/10/23 - 07/10/23 [place] [address] [facility] 207 [facility] [address] [address] [phone] Encounter Diagnosis Other specified abnormal findings of blood chemistry(Final) - Discharge Disposition: Home or Self Care Attending Physician: SHIRA Potter Jessica A Referring Physician: SHIRA Potter Jessica A Allergies, Adverse Reactions, Alerts No Known Allergies [...] Daily, Disp# 30 tab, Refills: 11, Pharmacy: [id number] Start Date: 06/21/23 Stop Date: 06/15/24 Status: Ordered 1 Plus 1 oral tablet Start: 08/20/19 12:00:00 EST, 1 tab, PO, Daily Start Date: 08/20/19 Status: Ordered Problem List Condition Confirmation Course Effective Dates Status Health St atus Informant Acne Confirmed Active Procedures Procedure Date Related Diagnosis Body Site Status Cystectomy 1 Completed Tonsillectomy Completed 1right wrist Results Laboratory List Name Date T4, Free (T4, FREE) 07/10/23 Thyroid Stimulating Hormone (TSH) 3 Most recent to oldest [Reference Range]: 1 Free T4 [0.9-1.7 ng/dL] 1.26 ng/dL (07/10/23 2:49 PM) TSH [0.30-4.20 uIU/mL] 0.83 uIU/mL (07/10/23 2:49 PM) Social History Social History Type Response Smoking Status Never smoked cigaret suzan Sex Female Patient Care team information Care Team Personnel Name: Macrina Martins Position: HIS Supervisor_P Member Role: HIS Lifetime Name: MD Lewis David L Position: Physician - Derm Member Role: Lifetime Relationship Address: Address: [address] [place] [address] Care Team Related Persons Name: KRISTEL VAZQUEZ Address: home [address] [facility] [place] [id number] Name: VERNA VAZQUEZ Address: home [address] [facility] [place] [id number]
--- OUTSIDE RECORDS SUMMARY | 2023-08-22 22:33 | External Medical Summary | Continuity of Care Document ---
Author Name Unknown Organization [facility] [address] Address [address] [place], [place] [id number] Encounter [facility] FINNBR [id number] Date(s): 06/12/23 - 06/12/23 [facility] [address] [facility] [address] 1 [facility] [address] [facility] [address] [place], [place] [phone] Encounter Diagnosis Other specified abnormal findings of [...] 25 mcg (0.025 mg) oral tablet Start: 05/03/23 11:54:00 EDT, 1 tab, PO, Daily, Disp# 30 tab, Refills: 1, Pharmacy: [id number] Start Date: 05/03/23 Stop Date: 07/02/23 Status: Ordered 1 Plus 1 oral tablet Start: 08/20/19 12:00:00 EST, 1 tab, PO, Daily Start Date: 08/20/19 Status: Ordered Problem List Condition Confirmation Course Effective Dates Status Health St atus Informant Acne Confirmed Active Procedures Procedure Date Related Diagnosis Body Site Status Cystectomy 1 Completed Tonsillectomy Completed 1right wrist Results Laboratory List Name Date T4, Free (T4, FREE) 06/12/23 Thyroid Stimulating Hormone (TSH) 06/12/23 Most recent to oldest [Reference Range]: 1 Free T4 [0.70-1.48 ng/dL] 1.02 ng/dL 1 (06/12/23 1:07 PM) TSH [0.47-4.68 uIU/mL] 1.55 uIU/mL 2 (06/12/23 1:07 PM) 1Result Comment: Testing Performed By: Dept of Pathology [facility], [address] [place] [address], [place] [address] 2Result Comment: Testing Performed By: Dept of Pathology [facility], [address] [place] [address], [place] [address] Social History Social History Type Response Smoking Status Never smoked cigaret suzan Sex Female Patient Care team information Care Team Personnel Name: Macrina Martins Position: HIS Supervisor_P Member Role: HIS Lifetime Name: MD Lewis David L Position: Physician - Derm Member Role: Lifetime Relationship Address: Address: [address] [place] [address], [place] [address] [place] Care Team Related Persons Name: KRISTEL VAZQUEZ Address: home [address] [facility] [place] [phone] Name: VERNA VAZQUEZ Address: home [address] [facility] [place] [id number]
== END 2023-08-22 18:35 | disposition home or self-care (01) ==
LOC: OPB 15:55 → 4S1 15:55 → 4E1 08-21 07:52

== ENCOUNTER 2024-10-05 05:30 | Inpatient (IN) ==
--- NOTE | 2024-09-22 13:11 | Anesthesiology Consultation ---
Date of Service September 22, 2024 Assessment & Plan Chart Review Chart Review: Patient NOT seen in Pre Admission Testing and customs entry clerk initiated Infectious Disease screening: Per PAT nursing assessment on 09/22/24 No known infectious disease contacts in past 10 days. No recent travel outside the country. Pt tested positive for mononucleosis on 08/30/24 and continues to c/o fatigue and nasal congestion; OB aware. History Surgery Operation Date: 10/05/24 07:30 Proposed Procedures p Section (Delivery of Baby Through Abdominal Incision) - Isabella Galaviz MD, FACOG Height/Weight Height: 5 ft 3 in Weight: 71.214 kg Allergies Allergy/AdvReac Type Severity Reaction Status Date / Time tuberculin, purified protein Allergy Intermediate Rash Verified 09/22/24 12:14 deriva Medications Home Medications Medication Instructions Recorded Confirmed Last Taken levothyroxine 25 mcg tablet 25 mcg PO QAM 06/25/23 09/22/24 09/14/24 07:00 (Synthroid) vit no.95-ferrous 1 tab PO DAILY 08/22/23 09/22/24 09/14/24 08:00 fumarate 28 mg-folic acid 800 mcg tablet () Lactobacillus acidophilus 10 10,000 mmu cells PO DAILY 09/22/24 09/22/24 Unknown billion cell capsule (Probiotic) aspirin 81 mg capsule 81 mg PO QAM 09/22/24 09/22/24 Unknown omeprazole 20 mg tablet,delayed 20 mg PO BID 09/22/24 09/22/24 Unknown release Past Medical History Medical History (Updated 09/22/24 @ 13:09 by Angelica Gomez PA-C) Heartburn during History of chicken pox History of COVID-19 (05/31/24) pt prescribed [id number] by OB as result; continues to take (OB aware) History of miscarriage Hypothyroidism newly diagnosed, occurred after miscarriage Mononucleosis (08/30/24) no treatment, experiencing persistent fatigue, still has stuffy nose premature rupture of membranes (PPROM) with unknown onset of labor demise at 19 weeks after PPROM Rhinitis related- chronic and stable with last baby Past Family History Family History Grandmother (Paternal) Diabetes Grandfather (Paternal) Colorectal cancer Denies family history of Ovarian cancer Breast cancer Past Surgical History Surgical History (Updated 09/22/24 @ 13:09 by Angelica Gomez PA-C) H/O section (06/02/20) SAB L4-L5 x 2 attempt History of myringotomy as a child, during T&A History of surgery on right wrist for cyst History of tonsillectomy and adenoidectomy as a child Hx of dilation and curettage (09/2023) D & E due to /congenital defects D & C 1992 Hx of wisdom tooth extraction Social History Smoking Status: Never smoker Do You Dip or Chew Tobacco: No Hx Alcohol Use: No Hx Substance Use: No substance use type: does not use
--- NOTE | 2024-10-02 12:55 | History & Physical Report ---
Date of Service October 02, 2024 Assessment & Plan (1) Previous delivery affecting : Plan: IUP at 40 4/7 weeks presents for repeat LTCS she was hoping to this delivery if no labor prior to 10/05 and cervix favorable- can offer AROM History of Present Illness Primary Care Provider: Keerthi Potter PA-C Patient is a 34 yo female EDC 10/01/24 who present for repeat LTCS at 40 4/7 weeks. She was hoping to this . First LTCS was at 37 weeks for complete placenta previa. complicated by AMA & hypothyroidism. testing has been reassuring. GBS-negative Allergies Allergy/AdvReac Type Severity Reaction Status Date / Time tuberculin, purified protein Allergy Intermediate Rash Verified 10/02/24 09:26 deriva Home Medications Medication Instructions Recorded Confirmed Type levothyroxine 25 mcg tablet 25 mcg PO QAM 06/25/23 10/02/24 History (Synthroid) vit no.95-ferrous 1 tab PO DAILY 08/22/23 10/02/24 History fumarate 28 mg-folic acid 800 mcg tablet () Lactobacillus acidophilus 10 10,000 mmu cells PO DAILY 09/22/24 10/02/24 History billion cell capsule (Probiotic) aspirin 81 mg capsule 81 mg PO QAM 09/22/24 10/02/24 History omeprazole 20 mg tablet,delayed 20 mg PO BID 09/22/24 10/02/24 History release Patient History Medical History (Updated 09/22/24 @ 13:09 by Angelica Gomez PA-C) History of miscarriage History of chicken pox History of COVID-19 (05/31/24) pt prescribed [id number] by OB as result; continues to take (OB aware) Mononucleosis (08/30/24) no treatment, experiencing persistent fatigue, still has stuffy nose premature rupture of membranes (PPROM) with unknown onset of labor demise at 19 weeks after PPROM Hypothyroidism newly diagnosed, occurred after miscarriage Rhinitis related- chronic and stable with last baby Heartburn during Surgical History (Updated 10/02/24 @ 12:52 by Isabella Galaviz MD, FACOG) Hx of dilation and curettage (09/2023) D & E due to /congenital defects D & C 1992 Hx of wisdom tooth extraction History of tonsillectomy and adenoidectomy as a child H/O section (06/02/20) SAB L4-L5 x 2 attempt History of surgery on right wrist for cyst History of myringotomy as a child, during T&A Family History Grandmother (Paternal) Diabetes Grandfather (Paternal) Colorectal cancer Denies family history of Ovarian cancer Breast cancer Social History (Updated 02/19/24 @ 10:59 by Karli Bedoya, EDMUND) Smoking Status: Never smoker Second Hand Exposure: No; Do You Dip or Chew Tobacco: No; Hx Alcohol Use: No Hx Substance Use: No Preferred Language: Greenlandic Communication Ability: Effective Director Embalmer Required: No Beliefs That Will Affect Care: None marital status: marital status details: Clay (35) [phone] Current Living Situation: Spouse and Family Current Living Situation Comment: lives spouse, son current occupational status: employed current occupation: RN education department registrar for [employer] Feels Safe at Home: Yes Assistive Devices: Contacts and Glasses Review of Systems All systems reviewed & are unremarkable except as noted in HPI & below Physical Exam Constitutional: WD/WN, vitals as above Psychiatric: A+Ox3, euthymic affect Genitourinary: OB Exam Abdomen: + fundal height (term), + vertex and + estimated weight (7-8 pounds) Manual OB Exam: + cervical dilation (1- 2cm) 1 cm, + cervical effacement 70% and + station 0 (posterior/soft) OB Exam Monitor Tracing: + external FHT monitor used, + external uterine monitor used, + category I and + normal FHT variability Coding Level of Care Code 61039 INT INP/OBS CARE 1/40MIN Diagnoses Previous delivery affecting O34.219
[2024-10-05] MEDS ORDERED: ceFAZolin 2000MG 2,000 MG/15 ML SYR IV SCH (06:00)
[2024-10-05 06:18] LABS: Hematocrit (blood only) 31.8 % (37.0-47.0); Mean Corpuscular Hemoglobin 31.2 pg (25.0-34.0); Mean Corpuscular Hgb Conc 34.6 g/dL (32.0-36.0); Mean Corpuscular Volume 90.1 fL (80.0-100.0); Mean Platelet Volume 11.5 fL (9.4-12.4); Platelet Count 165 K/uL (130-400); RDW Coefficient of Variation 13.8 % (11.5-14.5); RDW Standard Deviation 42.7 fL (36.4-46.3); Red Blood Count 3.53 M/uL (4.20-5.40); White Blood Count 7.48 K/ul (4.8-10.8)
[2024-10-05] MEDS ORDERED: OXYTOCIN 30 UNITS/NSS 30 UNITS/500 ML BAG IV PRN ×2 (07:46→19:23)
[2024-10-05] MEDS ORDERED: CALCIUM CARBONATE 500 MG CHEWABLE TAB PO PRN (07:46)
[2024-10-05] MEDS ORDERED: LIDOCAINE 1% LOCAL 20 ML VIAL INFIL PRN (07:46)
[2024-10-05] MEDS ORDERED: diphenhydrAMINE 50 MG/ML VIAL IV PRN (08:06)
[2024-10-05] MEDS ORDERED: NALOXONE HCL 1 MG in SODIUM CHLORIDE 0.9% 1,000 ML IV PRN (08:06)
[2024-10-05] MEDS ORDERED: NALBUPHINE HCL INJ 10 MG/ML AMP IV PRN (08:06)
[2024-10-05] MEDS ORDERED: BUPIVACAINE 0.25% PF 30 ML VIAL EPI PRN (08:06)
[2024-10-05] MEDS ORDERED: LIDOCAINE 2% MPF LOCAL 5 ML VIAL EPI PRN (08:06)
[2024-10-05] MEDS ORDERED: ROPIVACAINE 0.5% PF 5 MG/ML 20 ML VIAL EPI PRN (08:06)
[2024-10-05] MEDS ORDERED: NALOXONE HCL 0.4 MG/1 ML VIAL/CARP IV PRN (08:06)
[2024-10-05] MEDS ORDERED: SODIUM CHLORIDE 0.9% PF INJ 10 ML VIAL EPI PRN (08:06)
[2024-10-05] MEDS ORDERED: ePHEDrine sulfate 50 MG/ML AMP IV PRN (08:06)
[2024-10-05] MEDS ORDERED: fentaNYL citrate PF 100 MCG/2 ML VIAL EPI PRN (08:06)
--- NOTE | 2024-10-05 08:06 | Anesthesiology Consultation ---
Date of Service October 05, 2024 Assessment & Plan ASA ASA3 Proposed Anesthesia Anesthesia Type: Labor Epidural Risk / Benefits Reviewed With: PT / POA / Parent / Guardian, Accepts Plan and Informed Consent Obtained History Surgery Operation Date: 10/05/24 07:30 Proposed Procedures p Section - Isabella Galaviz MD, FACOG Height/Weight Height: 5 ft 3 in Weight: 72.121 kg Allergies Allergy/AdvReac Type Severity Reaction Status Date / Time tuberculin, purified protein Allergy Intermediate Rash Verified 10/05/24 06:01 deriva Medications Home Medications Medication Instructions Recorded Confirmed Last Taken levothyroxine 25 mcg tablet 25 mcg PO QAM 06/25/23 10/05/24 10/05/24 (Synthroid) vit no.95-ferrous 1 tab PO DAILY 08/22/23 10/05/24 10/04/24 fumarate 28 mg-folic acid 800 mcg tablet () Lactobacillus acidophilus 10 10,000 mmu cells PO DAILY 09/22/24 10/05/24 10/04/24 billion cell capsule (Probiotic) aspirin 81 mg capsule 81 mg PO QAM 09/22/24 10/05/24 10/05/24 omeprazole 20 mg tablet,delayed 20 mg PO BID 09/22/24 10/05/24 10/04/24 release Past Medical History Medical History History of miscarriage History of chicken pox History of COVID-19 (05/31/24) pt prescribed [id number] by OB as result; continues to take (OB aware) Mononucleosis (08/30/24) no treatment, experiencing persistent fatigue, still has stuffy nose premature rupture of membranes (PPROM) with unknown onset of labor demise at 19 weeks after PPROM Hypothyroidism newly diagnosed, occurred after miscarriage Rhinitis related- chronic and stable with last baby Heartburn during Exercise / Class Metabolic Activity II 4-5 Yardwork/Stairs/Walk up hill Past Family History Family History Grandmother (Paternal) Diabetes Grandfather (Paternal) Colorectal cancer Denies family history of Ovarian cancer Breast cancer Past Surgical History Surgical History Hx of dilation and curettage (09/2023) D & E due to /congenital defects Hx of wisdom tooth extraction History of tonsillectomy and adenoidectomy as a child H/O section (06/02/20) History of surgery on right wrist for cyst History of myringotomy as a child, during T&A Past Anesthesia History No Hx of Anesthesia Complications and No Family Hx of Anesthesia Complications History of PONV No Hx of PONV and No Hx of Motion Sickness Social History Smoking Status: Never smoker Do You Dip or Chew Tobacco: No Hx Alcohol Use: No Hx Substance Use: No substance use type: does not use Review of Systems denies fever/cough/ colds/ chest pain/ SOB/ PATRICK denies PATRICK Physical Exam Vital Signs Last Vital Signs Temp 36.9 C 10/05/24 07:05 Pulse 84 10/05/24 09:00 Resp 18 10/05/24 07:05 BP 113/74 10/05/24 09:00 Pulse Ox 98 10/05/24 08:58 ENMT Mouth: no TMJ abnormality and no dentition abnormality Thyromental Distance: > or= 3.5 Finger Breadths Mallampati Class: II Neck neck extension not limited Respiratory normal respiratory effort; no respiratory distress Auscultation: lungs clear to auscultation bilaterally Cardiovascular Rate/Rhythm: regular rate and regular rhythm Neurologic moves all extremities Psychiatric Orientation: alert and oriented x 3 Testing Laboratory Results 10/05/24 05:56 Blood Type B Positive 10/05/24 05:56 Antibody Screen NEGATIVE 10/05/24 05:56
[2024-10-05] MEDS: SODIUM CHLORIDE 0.9% 1,000 ML IV SCH ×2 (08:08→19:39)
--- NOTE | 2024-10-05 08:11 | History & Physical Bridge Note ---
Date of Service October 05, 2024 History & Physical Bridge Note I have examined the patient, reviewed the History & Physical and in the interval since the performance of the History & Physical I have noted the following changes of clinical significance: patient has been nicholas since 0500 , some bloody show this morning as well. cervix exam is 4-5cm/80/-1 posterior. patient wishes to so will not do LTCS and AROM when possible after epidural.
[2024-10-05] MEDS: LIDOCAINE 2%/EPINEPHRINE 1:200,000 20 ML PF EPI STA (08:49)
[2024-10-05] MEDS: BUPIVACAINE 0.25% PF 30 ML VIAL EPI STA (08:49)
[2024-10-05] MEDS: fentaNYL citrate PF 100 MCG/2 ML VIAL EPI STA (08:49)
[2024-10-05] MEDS: fentANYL 2 MCG/ML BUPIVacaine 0.125%-NSS 100ML BAG ONE (08:49)
[2024-10-05] MEDS: ONDANSETRON INJ 2 MG/ML 2 ML VIAL IV PRN (10:20)
[2024-10-05] MEDS: fentaNYL citrate PF 100 MCG/2 ML VIAL ONE (10:30)
[2024-10-05] MEDS: SODIUM CHLORIDE 0.9% PF INJ 10 ML VIAL ONE (10:30)
[2024-10-05] MEDS: BUPIVACAINE 0.25% PF 30 ML VIAL ONE (10:30)
[2024-10-05] MEDS: LIDOCAINE 2%/EPINEPHRINE 1:200,000 20 ML PF ONE (10:30)
[2024-10-05] MEDS: LEVOTHYROXINE SODIUM 25 MCG TABLET PO SCH (10:31)
[2024-10-05] MEDS: CITRIC ACID/SODIUM CITRATE 15 ML UDC PO SCH (10:31)
[2024-10-05] MEDS: ACETAMINOPHEN 500 MG TAB PO SCH (10:31)
[2024-10-05] MEDS: OXYTOCIN 30 UNITS/NSS 30 UNITS/500 ML BAG IV PRN (11:13)
[2024-10-05] MEDS: SODIUM CHLORIDE 0.9% PF INJ 10 ML VIAL EPI STA (11:27)
--- NOTE | 2024-10-05 15:08 | Labor Progress Brief Note ---
Date of Service October 05, 2024 Subjective Reason For Note: Routine Evaluation epidural analgesia effective AROM for copious amount of clear fluid at 0930 cervix was 5cm/80/-1 contractions still Q 8minutes apart but moderate cervix exam at noon 6cm/80/-1 FHT reactive will start pitocin autmentation of labor Assessment & Plan Admission and Anticipated Discharge Date Admission Date: October 05, 2024 Results & Data Vital Signs (Past 12 Hours) Vital Signs Temp Pulse Resp BP Pulse Ox 10/05/24 15:00 20 10/05/24 15:00 20 10/05/24 14:59 81 115/78 10/05/24 14:58 84 98 10/05/24 14:53 64 97 10/05/24 14:48 65 96 10/05/24 14:45 64 109/72 10/05/24 14:43 63 97 10/05/24 14:38 66 97 10/05/24 14:33 68 98 10/05/24 14:30 64 18 117/73 10/05/24 14:28 65 98 10/05/24 14:23 63 96 10/05/24 14:18 69 99 10/05/24 14:15 72 120/73 10/05/24 14:13 74 97 10/05/24 14:08 63 97 10/05/24 14:03 64 99 10/05/24 14:00 16 10/05/24 14:00 16 10/05/24 13:59 64 110/69 10/05/24 13:58 67 98 10/05/24 13:53 76 99 10/05/24 13:48 70 99 10/05/24 13:45 62 118/77 10/05/24 13:43 68 99 10/05/24 13:38 70 97 10/05/24 13:33 64 99 10/05/24 13:31 62 109/77 10/05/24 13:30 20 10/05/24 13:30 20 10/05/24 13:28 70 100 10/05/24 13:23 74 100 10/05/24 13:18 72 99 10/05/24 13:15 66 119/73 10/05/24 13:13 64 99 10/05/24 13:10 98.4 F 10/05/24 13:08 64 100 10/05/24 13:03 64 99 10/05/24 13:00 18 10/05/24 13:00 18 10/05/24 12:59 62 114/77 10/05/24 12:58 62 99 10/05/24 12:53 67 99 10/05/24 12:48 73 99 10/05/24 12:45 59 L 116/76 10/05/24 12:43 61 99 10/05/24 12:38 70 100 10/05/24 12:33 70 98 10/05/24 12:30 63 16 107/76 10/05/24 12:28 64 98 10/05/24 12:23 80 100 10/05/24 12:18 59 L 98 10/05/24 12:15 65 113/75 10/05/24 12:13 72 99 10/05/24 12:08 65 96 10/05/24 12:03 66 97 10/05/24 11:59 61 114/72 10/05/24 11:58 62 96 10/05/24 11:53 61 97 10/05/24 11:48 64 97 10/05/24 11:45 63 102/71 10/05/24 11:43 62 97 10/05/24 11:38 63 96 10/05/24 11:33 62 97 10/05/24 11:30 63 18 110/64 10/05/24 11:28 63 97 10/05/24 11:23 68 97 10/05/24 11:18 67 97 10/05/24 11:15 76 114/72 10/05/24 11:13 67 98 10/05/24 11:08 71 99 10/05/24 11:07 97.9 F 10/05/24 11:03 67 96 10/05/24 10:59 63 93/54 L 10/05/24 10:58 63 95 10/05/24 10:53 62 96 10/05/24 10:48 62 96 10/05/24 10:46 61 95/56 L 10/05/24 10:43 62 96 10/05/24 10:38 62 96 10/05/24 10:33 63 96 10/05/24 10:30 62 96/56 L 10/05/24 10:28 62 97 10/05/24 10:23 61 98 10/05/24 10:18 68 97 10/05/24 10:15 62 98/59 L 10/05/24 10:13 98 10/05/24 10:13 71 10/05/24 10:13 64 99/63 L 10/05/24 10:08 66 97 10/05/24 10:03 63 98 10/05/24 10:00 16 10/05/24 10:00 16 10/05/24 09:59 68 94/60 L 10/05/24 09:58 66 96 10/05/24 09:53 63 96 10/05/24 09:48 64 96 10/05/24 09:45 63 101/62 10/05/24 09:43 63 97 10/05/24 09:38 67 97 10/05/24 09:33 63 96 10/05/24 09:31 63 101/60 10/05/24 09:30 18 10/05/24 09:30 97.9 F 18 10/05/24 09:28 66 95 10/05/24 09:23 68 95 10/05/24 09:20 82 110/70 10/05/24 09:18 72 96 10/05/24 09:15 79 113/73 10/05/24 09:13 79 96 10/05/24 09:11 77 109/71 10/05/24 09:08 76 95 10/05/24 09:06 74 112/66 10/05/24 09:03 80 96 10/05/24 09:00 84 18 113/74 10/05/24 08:58 77 115/75 98 10/05/24 08:56 69 112/72 10/05/24 08:55 18 10/05/24 08:55 18 10/05/24 08:54 68 111/71 10/05/24 08:53 71 99 10/05/24 08:52 77 116/77 10/05/24 08:50 70 18 118/78 10/05/24 08:48 68 114/70 98 10/05/24 08:46 71 116/74 10/05/24 08:45 18 10/05/24 08:45 18 10/05/24 08:44 69 124/77 10/05/24 08:43 70 99 10/05/24 08:38 78 98 10/05/24 07:05 18 10/05/24 07:05 98.4 F 18 10/05/24 07:03 74 118/81 10/05/24 05:54 98.8 F 68 16 121/67 Coding Level of Care Code 40912 SUB INP/OBS CARE
[2024-10-05] MEDS: fentANYL 2 MCG/ML BUPIVacaine 0.125%-NSS 100ML BAG EPI PRN (16:08)
[2024-10-05] MEDS: ePHEDrine sulfate 50 MG/ML AMP ONE (19:19)
[2024-10-05] MEDS ORDERED: bisacodyL 10 MG SUPP PR PRN (19:23)
[2024-10-05] MEDS ORDERED: oxyCODONE/ACETAMINOPHEN 5mg/325mg TAB PO PRN (19:23)
--- NOTE | 2024-10-05 19:48 | Delivery Summary ---
Vaginal Delivery Summary Date of Service October 05, 2024 Vaginal Delivery Summary and 2nd Degree LAC (perineal) Patient is a 34-year-old 5 para 1-0-3-1 female EDC 10/01/2024 who presents at 40-4/7 weeks for repeat section. Patient was hoping to have a trial of labor. She was nicholas upon admission spontaneously and was noted to be 5 cm dilated. She received effective epidural analgesia. Membranes were ruptured for a copious amount of clear fluid. She required Pitocin augmentation to establish a consistent contraction pattern. She progressed to full dilation and pushed effectively over intact perineum for delivery of a viable male . After the head was delivered, the left arm presented posteriorly and was delivered prior to delivering the anterior right shoulder. The rest the infant delivered easily and was placed on the mother's abdomen for further tension and drying. He was vigorous crying and moving all 4 limbs. After 1 minute, the cord was clamped and cut. After cord blood was obtained, the placenta was expressed intact with a three-vessel cord. bleeding was controlled with dilute Pitocin and fundal massage. A second-degree perineal laceration was repaired with 3-0 chromic in the usual fashion. QBL was 400 mL. Mother and infant were doing well after delivery. MNP Vaginal Delivery Charge Delivery Type Details: and 2nd Degree LAC (perineal)
[2024-10-05] MEDS: BENZOCAINE 20% SPRY 85 APPLN/85 GM CAN EXT PRN (20:41)
[2024-10-05] MEDS: IBUPROFEN 600 MG TAB PO PRN (20:41)
--- NOTE | 2024-10-05 20:48 | Anesthesiology Progress Note ---
Date of Service October 05, 2024 Anesthesia Post Procedure Vital Signs Vital Signs: Temp Pulse Resp BP Pulse Ox 10/05/24 20:45 83 120/72 10/05/24 20:30 85 101/69 10/05/24 20:14 81 131/75 10/05/24 20:00 77 18 136/69 10/05/24 19:59 77 136/69 10/05/24 19:45 83 18 115/60 10/05/24 19:44 83 115/60 10/05/24 19:30 83 20 131/67 10/05/24 19:29 90 129/60 10/05/24 19:15 83 20 131/67 10/05/24 19:14 83 131/67 10/05/24 19:00 80 18 133/71 10/05/24 18:59 80 133/71 10/05/24 18:58 77 100 10/05/24 18:53 83 100 10/05/24 18:48 78 100 10/05/24 18:46 77 110/54 L 10/05/24 18:45 78 93 10/05/24 18:43 88 95 10/05/24 18:38 80 98 10/05/24 18:33 97 H 97 10/05/24 18:30 75 112/57 L 10/05/24 18:28 71 100 10/05/24 18:23 70 99 10/05/24 18:18 84 98 10/05/24 18:15 96 H 145/58 H 10/05/24 18:13 86 98 10/05/24 18:08 88 100 10/05/24 18:03 89 99 10/05/24 18:01 94 H 123/58 L 93 10/05/24 17:58 95 H 98 10/05/24 17:53 87 99 10/05/24 17:48 90 98 10/05/24 17:45 18 10/05/24 17:45 18 10/05/24 17:43 82 98 10/05/24 17:38 80 100 10/05/24 17:33 81 100 10/05/24 17:31 69 114/64 10/05/24 17:29 16 10/05/24 17:29 16 10/05/24 17:28 65 98 10/05/24 17:23 76 99 10/05/24 17:20 36.7 C 10/05/24 17:18 90 99 10/05/24 17:16 73 103/59 L 89 L 10/05/24 17:13 79 96 10/05/24 17:08 84 100 10/05/24 17:03 62 99 10/05/24 17:01 63 102/64 10/05/24 17:00 20 10/05/24 17:00 20 10/05/24 16:58 71 99 10/05/24 16:53 73 100 10/05/24 16:48 68 99 10/05/24 16:44 88 112/70 10/05/24 16:43 76 99 10/05/24 16:38 70 98 10/05/24 16:33 75 98 10/05/24 16:30 68 109/66 10/05/24 16:28 73 99 10/05/24 16:23 71 99 10/05/24 16:18 69 100 10/05/24 16:14 76 118/77 10/05/24 16:13 69 98 10/05/24 16:08 69 99 10/05/24 16:03 80 100 10/05/24 15:59 64 100/60 10/05/24 15:58 63 97 10/05/24 15:53 63 96 10/05/24 15:48 64 97 10/05/24 15:44 65 99/57 L 10/05/24 15:43 64 98 10/05/24 15:38 64 99 10/05/24 15:33 64 98 10/05/24 15:31 63 109/64 10/05/24 15:30 18 10/05/24 15:30 18 10/05/24 15:28 66 98 10/05/24 15:23 66 99 10/05/24 15:18 64 99 10/05/24 15:15 63 102/63 10/05/24 15:13 63 97 10/05/24 15:08 73 98 10/05/24 15:03 78 98 10/05/24 15:01 36.6 C 10/05/24 15:00 20 10/05/24 15:00 20 10/05/24 14:59 81 115/78 10/05/24 14:58 84 98 10/05/24 14:53 64 97 10/05/24 14:48 65 96 10/05/24 14:45 64 109/72 10/05/24 14:43 63 97 10/05/24 14:38 66 97 10/05/24 14:33 68 98 10/05/24 14:30 64 18 117/73 10/05/24 14:28 65 98 10/05/24 14:23 63 96 10/05/24 14:18 69 99 10/05/24 14:15 72 120/73 10/05/24 14:13 74 97 10/05/24 14:08 63 97 10/05/24 14:03 64 99 10/05/24 14:00 16 10/05/24 14:00 16 10/05/24 13:59 64 110/69 10/05/24 13:58 67 98 10/05/24 13:53 76 99 10/05/24 13:48 70 99 10/05/24 13:45 62 118/77 10/05/24 13:43 68 99 10/05/24 13:38 70 97 10/05/24 13:33 64 99 10/05/24 13:31 62 109/77 10/05/24 13:30 20 10/05/24 13:30 20 10/05/24 13:28 70 100 10/05/24 13:23 74 100 10/05/24 13:18 72 99 10/05/24 13:15 66 119/73 10/05/24 13:13 64 99 10/05/24 13:10 36.9 C 10/05/24 13:08 64 100 10/05/24 13:03 64 99 10/05/24 13:00 18 10/05/24 13:00 18 10/05/24 12:59 62 114/77 10/05/24 12:58 62 99 10/05/24 12:53 67 99 10/05/24 12:48 73 99 10/05/24 12:45 59 L 116/76 10/05/24 12:43 61 99 10/05/24 12:38 70 100 10/05/24 12:33 70 98 10/05/24 12:30 63 16 107/76 10/05/24 12:28 64 98 10/05/24 12:23 80 100 10/05/24 12:18 59 L 98 10/05/24 12:15 65 113/75 10/05/24 12:13 72 99 10/05/24 12:08 65 96 10/05/24 12:03 66 97 10/05/24 11:59 61 114/72 10/05/24 11:58 62 96 10/05/24 11:53 61 97 10/05/24 11:48 64 97 10/05/24 11:45 63 102/71 10/05/24 11:43 62 97 10/05/24 11:38 63 96 10/05/24 11:33 62 97 10/05/24 11:30 63 18 110/64 10/05/24 11:28 63 97 10/05/24 11:23 68 97 10/05/24 11:18 67 97 10/05/24 11:15 76 114/72 10/05/24 11:13 67 98 10/05/24 11:08 71 99 10/05/24 11:07 36.6 C 10/05/24 11:03 67 96 10/05/24 10:59 63 93/54 L 10/05/24 10:58 63 95 10/05/24 10:53 62 96 10/05/24 10:48 62 96 10/05/24 10:46 61 95/56 L 10/05/24 10:43 62 96 10/05/24 10:38 62 96 10/05/24 10:33 63 96 10/05/24 10:30 62 96/56 L 10/05/24 10:28 62 97 10/05/24 10:23 61 98 10/05/24 10:18 68 97 10/05/24 10:15 62 98/59 L 10/05/24 10:13 98 10/05/24 10:13 71 10/05/24 10:13 64 99/63 L 10/05/24 10:08 66 97 10/05/24 10:03 63 98 10/05/24 10:00 16 10/05/24 10:00 16 10/05/24 09:59 68 94/60 L 10/05/24 09:58 66 96 10/05/24 09:53 63 96 10/05/24 09:48 64 96 10/05/24 09:45 63 101/62 10/05/24 09:43 63 97 10/05/24 09:38 67 97 10/05/24 09:33 63 96 10/05/24 09:31 63 101/60 10/05/24 09:30 18 10/05/24 09:30 36.6 C 18 10/05/24 09:28 66 95 10/05/24 09:23 68 95 10/05/24 09:20 82 110/70 10/05/24 09:18 72 96 10/05/24 09:15 79 113/73 10/05/24 09:13 79 96 10/05/24 09:11 77 109/71 10/05/24 09:08 76 95 10/05/24 09:06 74 112/66 10/05/24 09:03 80 96 10/05/24 09:00 84 18 113/74 10/05/24 08:58 77 115/75 98 10/05/24 08:56 69 112/72 10/05/24 08:55 18 10/05/24 08:55 18 10/05/24 08:54 68 111/71 10/05/24 08:53 71 99 10/05/24 08:52 77 116/77 10/05/24 08:50 70 18 118/78 10/05/24 08:48 68 114/70 98 10/05/24 08:46 71 116/74 10/05/24 08:45 18 10/05/24 08:45 18 10/05/24 08:44 69 124/77 10/05/24 08:43 70 99 10/05/24 08:38 78 98 10/05/24 07:05 18 10/05/24 07:05 36.9 C 18 10/05/24 07:03 74 118/81 10/05/24 05:54 37.1 C 68 16 121/67 Pain Intensity Bilateral Abdomen: Pain Intensity: 0 Transfer of Care Handoff Completed per policy Notes Mental Status: alert / awake / arousable and participated in evaluation Patient Amnestic to Procedure: Yes Nausea / Vomiting: adequately controlled Pain: adequately controlled Airway Patency, RR, SpO2: stable & adequate BP & HR: stable & adequate Hydration State: stable & adequate Anesthetic Complications: no major complications apparent and Pt Satisfied with anesthetic care
--- NOTE | 2024-10-05 20:48 | Anesthesia Procedure Note ---
Date of Service October 05, 2024 Anesthesia Post Epidural Note Vital Signs Vital Signs: Temp Pulse Resp BP Pulse Ox 36.7 C 83 18 120/72 100 10/05/24 17:20 10/05/24 20:45 10/05/24 20:00 10/05/24 20:45 10/05/24 18:58 Pain Intensity Bilateral Abdomen: Pain Intensity: 0 Notes Mental Status: alert / awake / arousable and participated in evaluation Nausea / Vomiting: adequately controlled Pain: adequately controlled Airway Patency, RR, SpO2: stable & adequate BP & HR: stable & adequate Hydration State: stable & adequate Neuraxial Anesthesia: was administered and sensory block resolved Anesthetic Complications: no major complications apparent and Pt Satisfied with anesthetic care Epidural: Removed without complications and With tip intact
[2024-10-05] MEDS: DOCUSATE SODIUM 100 MG CAP PO SCH (21:09)
[2024-10-05] MEDS: ACETAMINOPHEN 325 MG TAB PO PRN (21:45)
[2024-10-05] MEDS ORDERED: SODIUM CHLORIDE 0.9% 100 ML IV PRN (22:40)
[2024-10-05] MEDS ORDERED: SODIUM CHLORIDE 0.9% 50 ML IV PRN (22:40)
[2024-10-06 06:16] LABS: Hematocrit (blood only) 27.9 % (37.0-47.0); Hemoglobin 9.3 g/dl (12.0-16.0); Mean Corpuscular Hemoglobin 31.5 pg (25.0-34.0); Mean Corpuscular Hgb Conc 33.3 g/dL (32.0-36.0); Mean Corpuscular Volume 94.6 fL (80.0-100.0); Mean Platelet Volume 11.7 fL (9.4-12.4); Platelet Count 151 K/uL (130-400); RDW Coefficient of Variation 14.2 % (11.5-14.5); Red Blood Count 2.95 M/uL (4.20-5.40); White Blood Count 11.62 K/ul (4.8-10.8)
--- NOTE | 2024-10-06 06:24 | Obstetrical Progress Note ---
Date of Service October 06, 2024 Assessment & Plan (1) state: (2) Perineal laceration during delivery: Plan Bren is a 34yo day 1 s/p with 2nd deg perineal laceration. Feeling well this AM, VSS. Continue care Encourage ambulation and Pain control as needed Hgb: 11.0 -> 9.3, asymptomatic Plans to go home today or tomorrow Followup with Dr. Galaviz in 6wks. Admission and Anticipated Discharge Date Admission Date: October 05, 2024 Supervising Physician Co-Signing Physician Notes Resident Physician Supervision Note: I interviewed and examined the patient. Discussed with Dr. Banda and agree with findings and plan as documented in the note. Any exceptions or clarifications are listed here: [None] Documented By: Isabella Galaviz MD, FACOG Subjective Bren is a 34yo day 1 s/p with 2nd deg perineal laceration. Feeling well this AM, endorses some sleep overnight. Pain: endorses some abdominal cramping with nursing but otherwise fine Ambulation: yes Gas: not yet Voiding: urinating, no BM yet Lochia: steady Diet: tolerating well Feeds: , supplementing as needed Denies headache, chest pain, SOB, n/v/d, LE pain/swelling, LE numbness/tingling. Review of Systems Review of Systems: Denies fever, body aches, chills, sweats, vision changes, significant vaginal bleeding/discharge. Physical Exam Physical Exam: General: A&Ox3, resting comfortably in bed, in no apparent distress, nontoxic in appearance Skin: warm, dry, intact HEENT: EOM intact, PERRL b/l Cardiovascular: RRR, +s1/s2, no murmurs/rubs/gallops Pulmonary: clear to auscultation b/l, no wheezes/rales/rhonchi GI/Abd: +BS, uterine fundus firm, nontender to palpation, 1 fingerwidth superior to level of umbilicus Extremities: no significant swelling or erythema of b/l LE, nontender to palpation, negative Adalid's b/l; warm, no clubbing or cyanosis Neuro: no facial droop, speech intact, moves all extremities on command Results & Data Vital Signs (Past 12 Hours) Vital Signs Temp Pulse Pulse Resp BP BP Pulse Ox 10/06/24 04:18 36.6 C 61 16 112/69 98 10/05/24 22:46 36.8 C 78 16 105/69 96 10/05/24 22:00 72 18 125/69 10/05/24 21:59 72 125/69 10/05/24 21:44 57 L 134/70 10/05/24 21:29 90 130/64 10/05/24 21:14 96 H 120/79 10/05/24 21:00 85 18 124/74 10/05/24 20:59 85 124/74 10/05/24 20:45 83 120/72 10/05/24 20:30 85 18 124/74 10/05/24 20:30 85 101/69 10/05/24 20:14 81 131/75 10/05/24 20:00 77 18 136/69 10/05/24 19:59 77 136/69 10/05/24 19:45 83 18 115/60 10/05/24 19:44 83 115/60 10/05/24 19:30 83 20 131/67 10/05/24 19:29 90 129/60 10/05/24 19:15 83 20 131/67 10/05/24 19:14 83 131/67 10/05/24 19:00 80 18 133/71 10/05/24 18:59 80 133/71 10/05/24 18:58 77 100 10/05/24 18:53 83 100 10/05/24 18:48 78 100 10/05/24 18:46 77 110/54 L 10/05/24 18:45 78 93 10/05/24 18:43 88 95 10/05/24 18:38 80 98 10/05/24 18:33 97 H 97 10/05/24 18:30 75 112/57 L 10/05/24 18:28 71 100 O2 Del Method 10/06/24 04:18 Room Air 10/05/24 22:46 Room Air 10/05/24 22:00 10/05/24 21:59 10/05/24 21:44 10/05/24 21:29 10/05/24 21:14 10/05/24 21:00 10/05/24 20:59 10/05/24 20:45 10/05/24 20:30 10/05/24 20:30 10/05/24 20:14 10/05/24 20:00 10/05/24 19:59 10/05/24 19:45 10/05/24 19:44 10/05/24 19:30 10/05/24 19:29 10/05/24 19:15 10/05/24 19:14 10/05/24 19:00 10/05/24 18:59 10/05/24 18:58 10/05/24 18:53 10/05/24 18:48 10/05/24 18:46 10/05/24 18:45 10/05/24 18:43 10/05/24 18:38 10/05/24 18:33 10/05/24 18:30 10/05/24 18:28 Laboratory Results Abnormal lab results 10/06/24 Range/Units 05:42 WBC 11.62 H (4.8-10.8) K/ul RBC 2.95 L (4.20-5.40) M/uL Hgb 9.3 L (12.0-16.0) g/dl Hct 27.9 L (37.0-47.0) % Resident Activity Tracking Resident Involvement: Resident Care Provided Care Provided: OB Delivery (2) Perineal laceration during delivery Perineal laceration degree: second degree Qualified Code(s): O70.1 - Second degree perineal laceration during delivery
[2024-10-06] MEDS: PRENATAL VITAMIN 1 TAB PO SCH (08:37)
[2024-10-06 18:13] VITALS: RESP 16; TEMP 98.2
[2024-10-06] MEDS: ACETAMINOPHEN 325 MG TAB PO PRN (20:01)
[2024-10-06] MEDS: bisacodyL 5 MG TABEC PO SCH (20:01)
[2024-10-06 20:06] VITALS: BP 128/81; PULSE 88; O2SAT 98
[2024-10-06] MEDS: DIPHTHER/TETAN/PERTUS Vaccine (Tdap, Adol/Adult) 0.5mL IM ONE (21:07)
[2024-10-06] MEDS: HYDROCORTISONE ACETATE 25 MG SUPP PR PRN (21:15)
[2024-10-07] MEDS: LEVOTHYROXINE SODIUM 25 MCG TABLET PO SCH (06:08)
--- NOTE | 2024-10-07 06:43 | Obstetrical Progress Note ---
Date of Service October 07, 2024 Assessment & Plan (1) state: (2) Perineal laceration during delivery: Plan Bren is a 34yo day 2 s/p () with 2nd deg perineal laceration. Feeling well this AM, VSS. Continue care Hemorrhoids care Encourage ambulation and Pain control as needed Hgb: 9.3 -> 9.0, asymptomatic Home today Followup with Dr. Galaviz in 6wks. Admission and Anticipated Discharge Date Admission Date: October 05, 2024 Supervising Physician Co-Signing Physician Notes Resident Physician Supervision Note: I interviewed and examined the patient. Discussed with Dr. Banda and agree with findings and plan as documented in the note. Any exceptions or clarifications are listed here: Doing well. Plan d/c. Instructions given. Documented By: Macrina Kat MD, FACOG Subjective Bren is a 34yo day 2 s/p with 2nd deg perineal laceration. Feeling well this AM, endorses some sleep overnight. Pain: endorses mainly hemorrhoid pain Ambulation: yes Gas: yes Voiding: urinating, no BM yet Lochia: decreasing Diet: tolerating well Feeds: , supplementing as needed Denies headache, chest pain, SOB, n/v/d, LE pain/swelling, LE numbness/tingling. Review of Systems Review of Systems: Denies fever, body aches, chills, sweats, vision changes, significant vaginal bleeding/discharge. Physical Exam Physical Exam: General: A&Ox3, resting comfortably in bed, in no apparent distress, nontoxic in appearance Skin: warm, dry, intact HEENT: EOM intact, PERRL b/l Cardiovascular: RRR, +s1/s2, no murmurs/rubs/gallops Pulmonary: clear to auscultation b/l, no wheezes/rales/rhonchi GI/Abd: +BS, uterine fundus firm, 1 fingerwidth superior to level of umbilicus, suprapubic tenderness to palpation Extremities: no significant swelling or erythema of b/l LE, nontender to palpation, negative Adalid's b/l; warm, no clubbing or cyanosis Neuro: no facial droop, speech intact, moves all extremities on command Results & Data Vital Signs (Past 12 Hours) Vital Signs Temp Pulse Resp BP Pulse Ox O2 Del Method 10/06/24 20:05 36.8 C 88 16 128/81 98 Room Air Laboratory Results 10/07/24 Range/Units 07:24 Hgb 9.0 L (12.0-16.0) g/dl Hct 27.5 L (37.0-47.0) % Resident Activity Tracking Resident Involvement: Resident Care Provided Care Provided: OB Delivery (2) Perineal laceration during delivery Perineal laceration degree: second degree Qualified Code(s): O70.1 - Second degree perineal laceration during delivery
[2024-10-07 07:41] LABS: Hematocrit (blood only) 27.5 % (37.0-47.0)
== END 2024-10-07 12:45 | disposition home or self-care (01) | DRG 807 ==
LOC: 4S1 05:30 → EDSTATUS 07:30 → 4E2 22:43